=== PATIENT | female | born 1930 | race African-American/Black ===

== ENCOUNTER 2018-02-12 11:46 | Observation (INO) | payer MEDICARE, MEDICAID ==
[~2018-02-12] VITALS: Ht 157.5 cm; Wt 43.1 kg
[2018-02-12 11:46] VITALS: BP 169/55
--- NOTE | 2018-02-12 11:46 | Emergency Room Report ---
History of Present Illness General Source: Patient, EMS (Michael Perez) Present Illness HPI Patient is an 87-year-old female brought in by EMS after ground-level fall. The patient does not recall events. She reports having increased pain to her left side including her left side of her face as well as her left upper extremity as well as her left hip. The patient was found sitting on a walker and was possibly assisted there by neighbor. The patient is not been ambulatory since fall. Patient reports having prior penicillin allergy as well as prior history of breast cancer. (Michael Perez) Allergies: Coded Allergies: PENICILLINS (Verified Allergy, Unknown, 12/25/09) Patient History Reviewed Nursing Documentation: PMH: Agreed; PSxH: Agreed (Michael Perez) Review of Systems All Other Systems: negative except mentioned in HPI (Michael Perez) Physical Exam Sp02 EP Interpretation: reviewed, normal General Appearance: normal inspection, alert, no apparent distress, GCS 15 Head: normocephalic, atraumatic Eyes: EOMI, lids + conjunctiva normal, no hyphema, no racoon eyes, other - left facial swelling periorbital ENT: normal ENT inspection, TMs + canals normal, oropharynx normal, no lane signs Neck: normal inspection, trach midline, no bony tend, full range of motion without pain Respiratory: effort normal, no retractions, clear to auscultation, chest symmetrical, palpation of chest normal, speaking in full sentences Cardiovascular: regular rate, rhythm, no JVD Cardiovascular #2: 2+ radial (R), 2+ radial (L), 2+ dorsalis pedis (R), 2+ dorsalis pedis (L) Gastrointestinal: normal inspection, non-tender, non-distended, no rebound/ guarding, normal bowel sounds Genitourinary: normal inspection Musculoskeletal: normal ROM, non-tender, back normal, other - left hip external rotated, shortened Skin: no rash, no lacerations, normal palpation Lymphatic: normal inspection Neurologic: oriented x3, sensory intact, motor strength/tone normal, normal speech Psychiatric: normal inspection, memory normal, mood normal, no suicidal/ homicidal ideation (Michael Perez) Medical Decision Making Diagnostic Impression: Primary Impression: Fall Additional Impressions: Head contusion Syncope Bradyarrhythmia UTI (urinary tract infection) Qualified Codes: N30.00 - Acute cystitis without hematuria ER Course Patient presented for fall. Differential diagnosis included was not limited to facial fracture, hip fracture, head injury, syncopal episode among others. Because of complexity of patient's case laboratory testing and imaging studies were ordered.Laboratory studies notable for elevated BNP. CT imaging of the head neck and left hip showed no evidence of acute fracture. Patient was discussed with Dr. Us for inpatient management due to [facility]. The patient was subsequently discussed with Dr. Varner for [facility] for [facility] for possible transfer.The patient will likely require cardiac monitoring. Labs Test 02/12/18 12:15 White Blood Count 8.5 K/UL (4.8-10.8) Red Blood Count 4.90 M/UL (4.20-5.40) Hemoglobin 12.0 G/DL (12.0-16.0) Hematocrit 38.6 % (37.0-47.0) Mean Corpuscular Volume 79 FL (80-99) Mean Corpuscular Hemoglobin 24.5 PG (27.0-31.0) Mean Corpuscular Hemoglobin Concent 31.1 G/DL (32.0-36.0) Red Cell Distribution Width 16.6 % (11.6-14.8) Platelet Count 314 K/UL (150-450) Mean Platelet Volume 6.8 FL (6.5-10.1) Neutrophils (%) (Auto) 84.7 % (45.0-75.0) Lymphocytes (%) (Auto) 10.1 % (20.0-45.0) Monocytes (%) (Auto) 4.6 % (1.0-10.0) Eosinophils (%) (Auto) 0.0 % (0.0-3.0) Basophils (%) (Auto) 0.6 % (0.0-2.0) Prothrombin Time 11.0 SEC (9.30-11.50) Prothromb Time International Ratio 1.1 (0.9-1.1) Activated Partial Thromboplast Time 27 SEC (23-33) Sodium Level 143 MMOL/L (136-145) Potassium Level 3.8 MMOL/L (3.5-5.1) Chloride Level 102 MMOL/L (98-107) Carbon Dioxide Level 31 MMOL/L (21-32) Anion Gap 10 mmol/L (5-15) Blood Urea Nitrogen 31 mg/dL (7-18) Creatinine 0.9 MG/DL (0.55-1.30) Estimat Glomerular Filtration Rate mL/min (>60) Glucose Level 89 MG/DL (74-106) Calcium Level 9.7 MG/DL (8.5-10.1) Total Bilirubin 0.8 MG/DL (0.2-1.0) Aspartate Amino Transf (AST/SGOT) 54 U/L (15-37) Alanine Aminotransferase (ALT/SGPT) 19 U/L (12-78) Alkaline Phosphatase 64 U/L (46-116) Troponin I 0.244 ng/mL (0.000-0.056) Pro-B-Type Natriuretic Peptide 6701 pg/mL (0-125) Total Protein 8.1 G/DL (6.4-8.2) Albumin 2.8 G/DL (3.4-5.0) Globulin 5.3 g/dL Albumin/Globulin Ratio 0.5 (1.0-2.7) (Michael Perez) ER Course See above note. [facility] unable to obtain a bed. Patient admitted Dr. Us observation UA with pyuria. Rocephin ordered. Laboratory Tests Test 02/12/18 12:15 02/12/18 15:40 White Blood Count 8.5 K/UL (4.8-10.8) Red Blood Count 4.90 M/UL (4.20-5.40) Hemoglobin 12.0 G/DL (12.0-16.0) Hematocrit 38.6 % (37.0-47.0) Mean Corpuscular Volume 79 FL (80-99) L Mean Corpuscular Hemoglobin 24.5 PG (27.0-31.0) L Mean Corpuscular Hemoglobin Concent 31.1 G/DL (32.0-36.0) L Red Cell Distribution Width 16.6 % (11.6-14.8) H Platelet Count 314 K/UL (150-450) Mean Platelet Volume 6.8 FL (6.5-10.1) Neutrophils (%) (Auto) 84.7 % (45.0-75.0) H Lymphocytes (%) (Auto) 10.1 % (20.0-45.0) L Monocytes (%) (Auto) 4.6 % (1.0-10.0) Eosinophils (%) (Auto) 0.0 % (0.0-3.0) Basophils (%) (Auto) 0.6 % (0.0-2.0) Prothrombin Time 11.0 SEC (9.30-11.50) Prothrombin Time INR 1.1 (0.9-1.1) PTT 27 SEC (23-33) Sodium Level 143 MMOL/L (136-145) Potassium Level 3.8 MMOL/L (3.5-5.1) Chloride Level 102 MMOL/L (98-107) Carbon Dioxide Level 31 MMOL/L (21-32) Anion Gap 10 mmol/L (5-15) Blood Urea Nitrogen 31 mg/dL (7-18) H Creatinine 0.9 MG/DL (0.55-1.30) Estimate Glomerular Filtration Rate mL/min (>60) Glucose Level 89 MG/DL (74-106) Calcium Level 9.7 MG/DL (8.5-10.1) Total Bilirubin 0.8 MG/DL (0.2-1.0) Aspartate Amino Transferase (AST) 54 U/L (15-37) H Alanine Aminotransferase (ALT) 19 U/L (12-78) Alkaline Phosphatase 64 U/L (46-116) Troponin I 0.244 ng/mL (0.000-0.056) Pro-B-Type Natriuretic Peptide 6701 pg/mL (0-125) H Total Protein 8.1 G/DL (6.4-8.2) Albumin 2.8 G/DL (3.4-5.0) L Globulin 5.3 g/dL Albumin/Globulin Ratio 0.5 (1.0-2.7) L Urine Color Pale yellow Urine Appearance Slightly cloudy Urine pH 5 (4.5-8.0) Urine Specific [place] 1.020 (1.005-1.035) Urine Protein 2+ (NEGATIVE) H Urine Glucose (UA) Negative (NEGATIVE) Urine Ketones 3+ (NEGATIVE) H Urine Occult Blood 2+ (NEGATIVE) H Urine Nitrite Negative (NEGATIVE) Urine Bilirubin Negative (NEGATIVE) Urine Urobilinogen Normal MG/DL (0.0-1.0) Urine Leukocyte Esterase 3+ (NEGATIVE) H Urine RBC 5-10 /HPF (0 - 2) H Urine WBC Tntc /HPF (0 - 2) H Urine Squamous Epithelial Cells Few /LPF (NONE/OCC) Urine Bacteria Moderate /HPF (NONE) H (Octaviano Knox M.D.) EKG Diagnostic Results Rate: bradycardiac Rhythm: NSR ST Segments: no acute changes (Michael Perez) Status: unchanged (Michael Perez) Last Vital Signs Date Time Temp Pulse Resp B/P (MAP) Pulse Ox O2 Delivery O2 Flow Rate FiO2 02/12/18 19:48 98.2 80 24 138/57 95 Room Air 98.2 Status: improved (Octaviano Knox M.D.) Disposition: ADMITTED INPATIENT Condition: Serious Michael Perez Feb 12, 2018 11:46 Octaviano Knox M.D. Feb 12, 2018 20:45
[2018-02-12 12:49] LABS: BASOPHILS % (AUTO) 0.6 % (0.0-2.0); HEMATOCRIT 38.6 % (37.0-47.0); LYMPHOCYTES % (AUTO) 10.1 % (20.0-45.0); MEAN CORPUSCULAR VOLUME 79 FL (80-99); MONOCYTES % (AUTO) 4.6 % (1.0-10.0); NEUTROPHILS % (AUTO) 84.7 % (45.0-75.0); PLATELET COUNT 314 K/UL (150-450); RED CELL DISTRIBUTION WIDTH 16.6 % (11.6-14.8); WHITE BLOOD COUNT 8.5 K/UL (4.8-10.8)
[2018-02-12 12:58] LABS: ANION GAP 10 mmol/L (5-15); BLOOD UREA NITROGEN 31 mg/dL (7-18); CALCIUM 9.7 MG/DL (8.5-10.1); CARBON DIOXIDE 31 MMOL/L (21-32); CHLORIDE 102 MMOL/L (98-107); CREATININE 0.9 MG/DL (0.55-1.30); POTASSIUM 3.8 MMOL/L (3.5-5.1); SODIUM 143 MMOL/L (136-145)
[2018-02-12 13:03] LABS: INR 1.1 (0.9-1.1)
[2018-02-12 13:09] LABS: ALANINE AMINOTRANSFERASE 19 U/L (12-78); ALBUMIN 2.8 G/DL (3.4-5.0); ALBUMIN/GLOBULIN RATIO 0.5 (1.0-2.7); ALKALINE PHOSPHATASE 64 U/L (46-116); BILIRUBIN,TOTAL 0.8 MG/DL (0.2-1.0)
[2018-02-12 13:36] LABS: ASPARTATE AMINO TRANSFERASE 54 U/L (15-37)
[2018-02-12] MEDS ORDERED: POTASSIUM CHLO20 ME1 ORAL (13:43)
[2018-02-12] MEDS ORDERED: OYSCO-500500 M1 ORAL (13:43)
[2018-02-12] MEDS ORDERED: ATORVASTATIN CA10 MG ORAL (13:43)
[2018-02-12] MEDS ORDERED: Norco 5mg/325mg tab ORAL ONE (14:00)
[2018-02-12 15:07] VITALS: BP 151/64
[2018-02-12 16:14] LABS: APPEARANCE,URINE SLIGHTLY CLOUDY; BILIRUBIN, URINE NEGATIVE (NEGATIVE); COLOR,URINE PALE YELLOW; GLUCOSE, URINE (UA) NEGATIVE (NEGATIVE); KETONES,URINE 3+ (NEGATIVE); LEUKOCYTE ESTERASE ,URINE 3+ (NEGATIVE); NITRITE,URINE NEGATIVE (NEGATIVE); PH,URINE 5 (4.5-8.0); PROTEIN,URINE 2+ (NEGATIVE); UROBILINOGEN,URINE NORMAL MG/DL (0.0-1.0)
[2018-02-12 17:04] VITALS: BP 114/57
[2018-02-12 18:37] VITALS: BP 151/50
[2018-02-12 19:48] VITALS: BP 138/57
[2018-02-12] MEDS ORDERED: cefTRIAXone 1 GM in D5W 55 ML IVPB ONE (20:45)
[2018-02-12 20:50] VITALS: BP 156/52
[2018-02-13] VITALS (7 sets, daily range): BP systolic 103–127; BP diastolic 57–82
--- NOTE | 2018-02-13 08:44 | Diagnostic Imaging Report ---
Indication: Pain, status post fall Technique: spiral acquisitions obtained through the brain. Angled axial and coronal 5 x 5 mm slices were reconstructed. No IV contrast utilized. Radiation dose was minimized using automated exposure control Total dose length product 1351.24 mGycm. CTDIvol(s) 70.38 mGy Comparison: FINDINGS: No acute hemorrhage or edema. No mass effect or midline shift. There is age-related enlargement of the ventricles and extra axial CSF spaces. There is periventricular deep white matter ischemic change. Normal rivas-white differentiation. There is evidence of prior bilateral cataract surgery. Old lacunar infarct is seen in the anterior limb of the right internal capsule. Visualized sinuses are unremarkable. Intact calvarium. The mastoids are clear there is left frontal scalp and periorbital soft tissue swelling/contusion IMPRESSION: Chronic and age-related changes. Negative for acute intracranial bleed or mass effect Old right basal ganglia lacunar infarcts. This agrees with the preliminary interpretation provided overnight by [facility]. The CT scanner at [facility] is accredited by the [employer] and the scans are performed using protocols designed to limit radiation exposure to as low as reasonably achievable to attain images of sufficient resolution adequate for diagnostic evaluation
--- NOTE | 2018-02-13 08:49 | Diagnostic Imaging Report ---
Indication: Pain, status post fall Technique: Spiral acquisitions obtained through the cervical spine. No IV contrast utilized. Multiplanar reconstructions were generated. Total dose length product 188.79 mGycm. CTDIvol(s) 10.82 mGy. Dose reduction achieved using automated exposure control. Comparison: none Findings: No acute fractures. No dislocations. Bony alignment is normal. No prevertebral soft tissue swelling. There is marked thickening and calcification of the posterior ring of the anterior atlantoaxial ligament. At C2-3, no significant disc bulge or protrusion, spinal stenosis, or neural foraminal narrowing. There is bilateral facet arthrosis At C3-4, there is mild degenerative disc narrowing there is mild bilateral neural foraminal stenosis. No significant disc bulge or protrusion or spinal stenosis. There is fairly extensive bilateral facet arthrosis. At C4-5, the disc spaces preserved. There is mild bilateral neural foraminal stenosis. There is bilateral facet arthrosis. No significant disc bulge or protrusion or spinal stenosis. C5-6, there is severe degenerative disc narrowing. There is moderate to severe bilateral neural foraminal stenosis. No significant disc bulge or protrusion or spinal stenosis. There is fairly extensive bilateral facet arthrosis with possible ankylosis of the facet on the left At C6-7, there is severe degenerative disc narrowing. There is bilateral facet arthrosis. There is moderate to severe bilateral neural foraminal stenosis. No significant disc bulge or protrusion or spinal stenosis. At C7-T1, there is moderate to severe degenerative disc narrowing. No significant disc bulge or protrusion. There is moderate right and [id number] left neural foraminal stenosis. The thyroid is somewhat heterogeneous, may contain multiple small nodules. The included extraspinal soft tissues are otherwise unremarkable. Impression: No acute bony trauma Multilevel degenerative changes as detailed on a level by level basis above Heterogeneous possibly multinodular thyroid. This agrees with the preliminary interpretation provided overnight by [facility]. The CT scanner at [facility] is accredited by the [employer] and the scans are performed using protocols designed to limit radiation exposure to as low as reasonably achievable to attain images of sufficient resolution adequate for diagnostic evaluation.
--- NOTE | 2018-02-13 08:52 | Diagnostic Imaging Report ---
Indication: Pain, status post fall Technique: No IV contrast, per trauma protocol Spiral acquisitions obtained through the left hip and pelvis Multiplanar reconstructions were generated. Total dose length product 210.04 mGycm. CTDIvol(s) 7.85 mGy. Radiation dose was minimized using automated exposure control Comparison: none no pelvic fracture demonstrated. The joint spaces are preserved. There are degenerative changes of the lumbosacral junction. There are mild degenerative proliferative changes of the bilateral hips as well. There is infiltration of the left hip and lateral buttock fat, likely representing contusion, as well as very slight thickening of the subjacent musculature. The included pelvic viscera are unremarkable except for colonic diverticula. Findings: No acute bony trauma Evidence of left posterior hip/lateral buttock subcutaneous fat contusion Mild degenerative changes, as described This agrees with the preliminary interpretation provided overnight by [facility]. Impression: The CT scanner at [facility] is accredited by the [employer] and the scans are performed using protocols designed to limit radiation exposure to as low as reasonably achievable to attain images of sufficient resolution adequate for diagnostic evaluation.
--- NOTE | 2018-02-13 08:53 | Diagnostic Imaging Report ---
Indications: Pain, status post fall Technique: Two views of the left humerus Comparison: None Findings: No acute fractures. No dislocations. The joint spaces are preserved. The bones are osteoporotic. No radiopaque foreign body Impression: Negative
--- NOTE | 2018-02-13 08:53 | Diagnostic Imaging Report ---
Indication: Chest pain Technique: One view of the chest Comparison: 12/24/2009 Findings: The heart is enlarged. The lungs and pleural spaces are clear. No gross acute fractures. There are right axillary surgical clips. Impression: No definite acute process
--- NOTE | 2018-02-13 08:56 | Diagnostic Imaging Report ---
Indication: Pain, status post fall Technique: 3 views left hand Comparison: none Findings: No acute fractures. No dislocations. There is degenerative joint space narrowing of the first interphalangeal joint, second fourth and fifth proximal interphalangeal joints, fifth and fourth distal interphalangeal joints. There is deformity of the left wrist, with some settling of the capitate between the lunate and may scaphoid as well as some degenerative remodeling of the lunate and scaphoid. 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 Degenerative changes, as described. 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
[2018-02-13] MEDS: Tums 500mg ORAL SCH ×3 (09:40→16:57)
[2018-02-13] MEDS ORDERED: Levofloxacin 500mg tab ORAL SCH (13:00)
--- NOTE | 2018-02-13 18:41 | Cardiology Report ---
APPROVED REPORT EXAM: Two-dimensional and M-mode echocardiogram with Doppler and color Doppler. INDICATION Syncope M-Mode DIMENSIONS IVSd1.1 (0.7-1.1cm)Left Atrium (MM)3.6 (1.6-4.0cm) LVDd3.7 (3.5-5.6cm)Aortic Root2.8 (2.0-3.7cm) PWd0.9 (0.7-1.1cm)Aortic Cusp Exc.1.5 (1.5-2.0cm) LVDs2.5 (2.5-4.0cm) PWs1.5 cm Normal left ventricular chamber size, systolic function and wall motion. Left ventricular ejection fraction estimated to be 55 %. Borderline left ventricular hypertrophy. No evidence of pericardial effusion. All other cardiac chamber sizes are within normal limits. Mild focal aortic valve sclerosis with adequate cusp excursion. Mildly thickened mitral valve leaflets with normal excursion. Mild mitral annulus and aortic root calcification. Normal pulmonic valve structure. Normal tricuspid valve structure. IVC is normal in size with physiological collapse. A color flow and spectral Doppler study was performed and revealed: Moderate aortic insufficiency. Peak aortic valve gradient of 13 mmHg and a mean of 6 mmHg. Aortic valve area 1.6 cm2 calculated by continuity equation. Severe mitral regurgitation. Mitral diastolic velocities suggest mild left ventricular diastolic dysfunction (Grade I). Mild to moderate tricuspid regurgitation. Tricuspid systolic velocities suggests peak right ventricular systolic pressure of 51 mmHg, consistent with moderate pulmonary hypertension. Severe pulmonic regurgitation present.
--- NOTE | 2018-02-13 21:16 | History and Physical Report ---
DATE OF ADMISSION: 02/12/2018 HISTORY OF PRESENT ILLNESS: This is a very pleasant 87-year-old female, who was brought in by paramedics yesterday after a ground level fall. Initially, plans were made to transfer to [facility], however, since there was no bed available, she has been into the hospital. The patient reports that she has left arm, shoulder and hip pain. Imaging studies are negative. The patient reports she lives alone at home and has no . PAST MEDICAL HISTORY: Notable for hypertension and hyperlipidemia. MEDICATIONS: Home medications, potassium, calcium carbonate and Lipitor. ALLERGIES: Penicillin. REVIEW OF SYSTEMS: She denies any headaches, hematemesis, melena, hematochezia, night sweats, or weight loss. Previously exam reported. PHYSICAL EXAMINATION: GENERAL: Reveals an elderly female. HEENT: Unremarkable. LUNGS: Clear breath sounds bilaterally. ABDOMEN: Soft. EXTREMITIES: No edema. NEUROLOGIC: Nonfocal. VITAL SIGNS: Heart rate is 64, respirations 18, blood pressure 110/70, and she is afebrile. LABORATORY AND DIAGNOSTIC DATA: Lab testing is notable for normal CBC and chemistries. Troponin is 0.24 followed by 0.1. Coagulations are negative. Urinalysis shows too numerous WBC. Imaging studies are negative for x-rays of the cervical spine, chest, hand and hip CT. IMPRESSION: 1. Status post fall. 2. UTI. 3. Bradycardia, resolved. 4. Hyperlipidemia. DISCUSSION: Admitted to the hospital, we will order an echo, serial troponins. 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 We will for antibiotics. Geronimo Us M.D. DR: JEN JOB#: [id number] CC:
[2018-02-14] VITALS: BP 110/59
[2018-02-14 04:00] VITALS: BP 116/62
--- NOTE | 2018-02-14 06:16 | Consultation ---
DATE OF CONSULTATION: 02/13/2018 CARDIOLOGY CONSULTATION CONSULTING PHYSICIAN: Octaviano Umaña M.D. REQUESTING PHYSICIAN: Geronimo Us M.D. REASON FOR CONSULTATION: Bradycardia following ground level fall. HISTORY OF PRESENT ILLNESS: This is an 87-year-old female. She is a poor historian. She presented to the emergency room yesterday with increased left-sided face, upper extremity, and hip pain after falling. She was apparently found sitting on a walker having fallen, but is not able to describe any further details associated with the event. She was found by a neighbor and brought to the emergency room. Initially, she was to be transferred to another facility, but has remained here for further care. Her radiographs apparently did not reveal any acute fracture. Concern has been raised over her bradycardia prompting this consultation although that has improved since her initial presentation. PAST MEDICAL HISTORY: Includes breast cancer. MEDICATIONS: Prior to admission, not known. ALLERGIES: Penicillin. SOCIAL HISTORY: Negative for smoking, alcohol, or substance abuse. REVIEW OF SYSTEMS: Otherwise cannot be reliably obtained from the patient. PHYSICAL EXAMINATION: VITAL SIGNS: In the emergency room, blood pressure 169/55, pulse 47, respirations 16, and afebrile. Presently, blood pressure 113/82, pulse 65, respirations 18, and afebrile. HEENT: Temporal wasting. [place] conjunctivae. Anicteric sclerae. Arcus senilis. Oropharynx clear. NECK: Supple. Jugular venous pressure normal. LUNGS: Clear. CARDIAC: Regular rhythm and rate. Normal S1, S2 with a 1/6 systolic murmur at the apex. ABDOMEN: Soft and nontender. EXTREMITIES: No edema. No open wounds. LABORATORY DATA: Troponin on admission 0.244, today 0.078. Pro-natriuretic peptide 6700 and BUN 31 with creatinine 0.9. An echocardiogram revealed normal ejection fraction, mild aortic stenosis with area of 1.6 cm2, severe mitral and moderate tricuspid regurgitations, and moderate pulmonary hypertension. EKG reveals sinus bradycardia with no acute abnormalities otherwise. Urinalysis with too numerous to count white cells. IMPRESSION: 1. Status post fall with multiple contusions, but no apparent fractures. 2. Sinus bradycardia, resolving, but possibly associated with initial fall. 3. Elevated troponin level suggesting acute myocardial infarction. 4. Degenerative valve disease as described on above echocardiogram report. PLAN: 1. Anti-platelet therapy. 2. Cardiac monitoring. 3. Avoid beta-blockers. 4. Titrate anti-failure regimen with angiotensin-converting enzyme inhibitors. 5. Monitor orthostatics. 6. DVT prophylaxis. 7. Lipid panel. 8. Conservative management in this age group and clinical setting. 9. Presently, there is no indication for temporary or permanent pacemaker. Octaviano Umaña M.D. DR: RACHEL JOB#: [id number] CC:
[2018-02-14 08:00] VITALS: BP 116/58
--- NOTE | 2018-02-14 08:27 | Pulmonology Progress Note ---
Assessment/Plan Assessment/Plan 1. Status post fall with multiple contusions, but no apparent fractures. 2. Sinus bradycardia, resolving, but possibly associated with initial fall. 3. Elevated troponin level suggesting acute myocardial infarction. 4. Degenerative valve disease as described on echocardiogram report. 5. Moderate pulmonary hypertension. 6. UTI PLAN: 1. Anti-platelet therapy. 2. Cardiac monitoring. 3. Avoid beta-blockers. 4. Titrate anti-failure regimen with angiotensin-converting enzyme inhibitors. 5. Monitor orthostatics. 6. DVT prophylaxis. 7. Lipid panel. 8. Conservative management in this age group and clinical setting. 9. Presently, there is no indication for temporary or permanent pacemaker. 10. Continue PO abx 11. DC planning to SNF Subjective Interval Events: Feeling better Constitutional: Reports: no symptoms HEENT: Repors: no symptoms Respiratory: Reports: no symptoms Cardiovascular: Reports: no symptoms Gastrointestinal/Abdominal: Reports: no symptoms Genitourinary: Reports: no symptoms Allergies: Coded Allergies: PENICILLINS (Verified Allergy, Unknown, 12/25/09) Objective Last 24 Hour Vital Signs Date Time Temp Pulse Resp B/P (MAP) Pulse Ox O2 Delivery O2 Flow Rate FiO2 02/14/18 04:00 66 02/14/18 04:00 96.9 68 18 116/62 97 Room Air 96.9 68 02/14/18 00:00 72 02/14/18 00:00 97.2 71 18 110/59 98 Room Air 97.2 71 02/13/18 20:00 83 02/13/18 20:00 96.6 69 18 122/57 95 Room Air 96.6 69 02/13/18 16:00 83 02/13/18 16:00 97.0 70 18 127/68 Room Air 97.0 70 02/13/18 12:00 96.9 78 18 113/82 96 96.9 18 02/13/18 12:00 65 02/13/18 10:30 96.9 60 19 126/63 96 Room Air 96.9 19 Intake and Output 02/13/18 02/14/18 19:00 07:00 Intake Total 116 ml 116 ml Balance 116 ml 116 ml Intake Oral 116 ml 116 ml # Voids 1 4 # Bowel Movements 1 General Appearance: no acute distress HEENT: normocephalic Respiratory/Chest: chest wall non-tender, lungs clear Cardiovascular: normal peripheral pulses, normal rate Abdomen: normal bowel sounds, soft, non tender Microbiology Date/Time Source Procedure Growth Status 02/12/18 15:40 Urine,Clean Catch Urine Culture - Preliminary Resulted Laboratory Tests 02/13/18 12:00: Troponin I 0.066H 02/13/18 19:35: Troponin I 0.078H Current Medications Medications (Trade) Dose Ordered Sig/Tasha Route PRN Reason Start Time Stop Time Status Last Admin Dose Admin Atorvastatin Calcium (Lipitor) 10 mg BEDTIME ORAL 02/13/18 21:00 03/15/18 20:59 02/13/18 21:00 Calcium Carbonate (Tums) 500 mg THREE TIMES A DAY ORAL 02/13/18 09:00 03/15/18 08:59 02/13/18 16:57 Levofloxacin (Levaquin) 250 mg DAILY ORAL 02/14/18 09:00 02/21/18 08:59 Potassium Chloride (K-Dur) 20 meq DAILY ORAL 02/13/18 09:00 03/15/18 08:59 02/13/18 09:00 Geronimo Us MD Feb 14, 2018 08:27
[2018-02-14] MEDS ORDERED: LEVAQUIN250 M1 ORAL (08:28)
[2018-02-14] MEDS ORDERED: ASPIRIN-LOW81 MG ORAL (08:28)
[2018-02-14] MEDS: Tums 500mg ORAL SCH (08:41)
[2018-02-14 12:00] VITALS: BP 107/54
--- NOTE | 2018-02-15 01:15 | Progress Note ---
DATE: 02/14/2018 CARDIOLOGY PROGRESS NOTE SUBJECTIVE: Pain seems to be controlled. No shortness of breath or chest pain. OBJECTIVE: VITAL SIGNS: Blood pressure 116/62, pulse 68, and respirations 18. NECK: Supple. LUNGS: Clear. CARDIAC: Regular. ABDOMEN: Soft. EXTREMITIES: No edema. LABORATORY DATA: Troponin 0.244, now down to 0.078. IMPRESSION: 1. Uncomplicated acute myocardial infarction. 2. Acute on chronic diastolic congestive heart failure. 3. Syncopal episode likely associated with acute ischemia and hypoperfusion. 4. Left-sided contusions with no fractures. 5. Degenerative valve disease with regurgitation. 6. Sinus bradycardia, resolved. PLAN: 1. Medical therapy in this age group. 2. No beta-blockers. 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 4. Fall precautions. 5. Consider Holter monitor to evaluate for more advanced conduction system disease, but presently there is no indication for permanent pacing. Octaviano Umaña M.D. DR: RACHEL JOB#: [id number] CC:
--- NOTE | 2018-02-16 19:21 | Cardiology Report ---
APPROVED REPORT EKG Measurement Heart [id number] Sinus bradycardia with premature atrial complexes Left axis deviation Minimal voltage criteria for LVH, may be normal variant Abnormal ECG
--- NOTE | 2018-02-28 18:32 | Discharge Summary ---
Discharge Summary Discharge Summary Discharge Summary DATE OF ADMISSION: 02/12/2018 DATE OF DISCHARGE: 02/14/2018 CONSULTANTS: Dr. Octaviano Umaña BRIEF HOSPITAL COURSE: Patient is an 87-year-old female who was brought in by paramedics after a ground -level fall. Initially plans were made to transfer patient to a contracted hospital however since there was no bed available, she was admitted. She came in complaining of increased pain to her left side including the left upper extremity and hip. She had not been ambulatory since a fall. She has history of breast cancer. On evaluation at ED, imaging studies of the cervical spine, chest, hand, and hip were negative. Urinalysis with pyuria. Troponin on admission 0.244, she underwent cardiac evaluation. EKG was sinus bradycardia with no acute abnormalities otherwise. On echocardiogram, she had normal ejection fraction, mild aortic stenosis with area of 1.6 cm, severe mitral and moderate tricuspid regurgitation and moderate pulmonary hypertension. She was given Lipitor. No beta blockers recommended. She was placed on fall precautions. Troponin down trended. She was recommended Holter monitor as outpatient for more advanced conduction system evaluation, however, there is no current indication for permanent pacing. She was given Levaquin. Urine culture with Pseudomonas and Escherichia coli sensitive to antibiotic. She was eventually discharged home. FINAL DIAGNOSES: Status post fall with multiple contusions, but no apparent fractures. Sinus bradycardia, resolving, possibly associated with initial fall Elevated troponin suggestive of acute myocardial infarction Degenerative valve disease as seen on echocardiogram Moderate pulmonary hypertension Urinary tract infection with Escherichia coli and Pseudomonas DISPOSITION: Patient was transferred to [facility] post acute care DISCHARGE MEDICATIONS: Refer to Discharge Medication List. I have been assigned to dictate discharge summary on this account, and I was not involved in the patient's management. Nancy Abreu NP Feb 28, 2018 18:32
== END 2018-02-14 13:36 ==
LOC: EDBD 11:46 → EMR 12:10 → EDBEDREQ 12:39 → 2E 20:12 → UNDODISOB 02-14 13:36
DX: I21.9 Acute myocardial infarction, unspecified (principal); S00.93XA Contusion of unspecified part of head, initial encounter; R00.1 Bradycardia, unspecified; I50.33 Acute on chronic diastolic (congestive) heart failure; E78.5 Hyperlipidemia, unspecified; I34.0 Nonrheumatic mitral (valve) insufficiency; I27.20 Pulmonary hypertension, unspecified; N39.0 Urinary tract infection, site not specified; B96.20 Unspecified Escherichia coli [E. coli] as the cause of diseases classified elsewhere; B96.5 Pseudomonas (aeruginosa) (mallei) (pseudomallei) as the cause of diseases classified elsewhere; W18.30XA Fall on same level, unspecified, initial encounter; Y93.9 Activity, unspecified; Y92.008 Other place in unspecified non-institutional (private) residence as the place of occurrence of the external cause; Z85.3 Personal history of malignant neoplasm of breast; Z88.0 Allergy status to penicillin
CPT/HCPCS: 36415; 70450; 71045; 72125; 73060; 73130; 73700; 80053; 81003; 82962; 83880; 84484 ×2; 85025; 85610; 85730; 86850; 86900; 86901; 87086; 87181; 93005; 93306; 97110; 97116; 97162; 97530 ×2; 99285; J0696; J1940; J8499